=== PATIENT | male | born 1945 | race Caucasian/White ===

== ENCOUNTER 2018-11-11 09:54 | Day surgery (SDC) | payer OTHER ==
[~2018-11-11] VITALS: Ht 182.9 cm; Wt 110.6 kg
[2018-11-11 10:21] VITALS: BP 128/84; PULSE 75; TEMP 97.7
[2018-11-11] MEDS ORDERED: PROSCAR 5MG5 MG PO (10:23)
[2018-11-11] MEDS ORDERED: ZOCOR 80MG80 MG PO (10:24)
[2018-11-11] MEDS ORDERED: NEURONTIN300 MG/CAP PO (10:24)
[2018-11-11] MEDS ORDERED: PLAVIX 75MG TAB75 MG PO (10:25)
[2018-11-11] MEDS ORDERED: SEROQUEL 200MG200 MG PO (10:25)
[2018-11-11] MEDS ORDERED: LIDEX CR 15GM TP (10:25)
[2018-11-11] MEDS ORDERED: SYNTHROID0.137 MG PO (10:26)
[2018-11-11] MEDS ORDERED: LITHIUM 30300 MG/CAP PO (10:26)
[2018-11-11] MEDS ORDERED: FLOMAX 0.40.4 MG/CAP PO (10:27)
[2018-11-11] MEDS ORDERED: FLEXERIL 1010 MG/TAB PO (10:27)
[2018-11-11] MEDS ORDERED: PROTONIX 40MG T40 MG PO (10:28)
[2018-11-11] MEDS ORDERED: MINIPRESS 5M5 MG/CAP PO (10:28)
[2018-11-11] MEDS ORDERED: TOPROL XL 50MG50 MG PO (10:28)
[2018-11-11] MEDS ORDERED: MOBIC 7.5MG7.5 MG PO (10:29)
[2018-11-11] MEDS ORDERED: ZYLOPRIM 300MG300 MG PO (10:29)
[2018-11-11] MEDS ORDERED: NOVOLOG FLEX100 U/ML SQ (10:30)
[2018-11-11] MEDS ORDERED: LANTUS SOLOS100 U/ML SQ (10:30)
[2018-11-11] MEDS ORDERED: ZYRTEC 10MG10 MG PO (10:31)
[2018-11-11] MEDS ORDERED: MINIPRESS2 MG PO (10:31)
[2018-11-11] MEDS ORDERED: NIZORAL SHAMPO120 M1 TP (10:32)
[2018-11-11 12:30] VITALS: BP 132/98; PULSE 75; TEMP 97.3
--- NOTE | 2018-11-11 12:30 | NUR ---
Patient arrives to post-op bay 2 via cart, accompanied by Endo RN Lucy. He is alert and oriented. He ambulates with standby assist to chair in room. is at the bedside. Monitoring applied - VSS and WNL on room air. Gag reflex intact. Denies any pain or nausea. Confirmed OK to return to regular diet with Dr. Antunez. Offered and receives water, does not want anything to eat.
[2018-11-11 12:45] VITALS: BP 164/90; PULSE 64
--- NOTE | 2018-11-11 12:45 | NUR ---
VSS and WNL on room air. Denies any pain, nausea, or need.
[2018-11-11 13:00] VITALS: BP 157/90; PULSE 65
--- NOTE | 2018-11-11 13:00 | NUR ---
Resting comfortably in room. VSS and WNL on room air.
[2018-11-11 13:15] VITALS: BP 129/88; PULSE 70
--- NOTE | 2018-11-11 13:15 | NUR ---
DR BASURTO SEE PT, REVIEWED DISCHARGE INST. WITH PT AND ON BOTH PROCEDURES, PRECAUTIONS, ACTIVITY AND RESULTS TO BE CALLED FROM OFFICE, WITH VERBAL UNDERSTANDING. IV D'CD INTACT, PT UP TO B/R, DRESSED AND DISCHARGED VIA W/C TO TRUCK AT 1330
== END 2018-11-11 13:30 | disposition home or self-care (01) ==
LOC: SDCO 09:54
DX: Z12.11 Encounter for screening for malignant neoplasm of colon (principal); K22.70 Barrett's esophagus without dysplasia; K21.9 Gastro-esophageal reflux disease without esophagitis; K57.30 Diverticulosis of large intestine without perforation or abscess without bleeding; F10.21 Alcohol dependence, in remission; F32.9 Major depressive disorder, single episode, unspecified; I10 Essential (primary) hypertension; E11.9 Type 2 diabetes mellitus without complications; I25.10 Atherosclerotic heart disease of native coronary artery without angina pectoris; E78.00 Pure hypercholesterolemia, unspecified; Z86.010 Personal history of colon polyps; Z80.0 Family history of malignant neoplasm of digestive organs; Z79.02 Long term (current) use of antithrombotics/antiplatelets; Z79.82 Long term (current) use of aspirin; Z83.79 Family history of other diseases of the digestive system; Z87.891 Personal history of nicotine dependence; Z86.59 Personal history of other mental and behavioral disorders; Z79.4 Long term (current) use of insulin
CPT/HCPCS: J3010; J7030